=== PATIENT | female | born 1945 | race African-American/Black ===

== ENCOUNTER 2016-11-05 14:25 | Day surgery (SDC) | payer OTHER ==
[~2016-11-05] VITALS: Ht 162.6 cm; Wt 74.2 kg
[2016-11-05 15:28] VITALS: Ht 162.6 cm; Wt 74.2 kg
[2016-11-05] MEDS ORDERED: ATOR40TA68 PO (15:39)
[2016-11-05] MEDS ORDERED: LISI2.5T59 PO (15:39)
[2016-11-05 16:05] VITALS: BP 158/76; PULSE 58; RESP 18
[2016-11-05 17:15] VITALS: BP 158/74; PULSE 69; RESP 24
[2016-11-05] MEDS ORDERED: FENTAnyl 50 MCG/ML VIAL ONE (17:26)
[2016-11-05] MEDS ORDERED: MIDAZOLAM 1 MG/ML 2 ML INJ ONE ×2 (17:26)
--- NOTE | 2016-11-06 00:25 | GILP ---
DATE OF PROCEDURE: NAME OF PROCEDURE: Colonoscopy. SURGEON: Tavo Fuchs MD PREOPERATIVE DIAGNOSIS: Screening colonoscopy. POSTOPERATIVE DIAGNOSES 1. Colonoscopy all the way to the cecum. 2. Internal hemorrhoids. 3. No colon neoplasm was identified. INDICATION FOR THE PROCEDURE: Ms. Cailin Sena is a 71-year-old female patient who was scheduled fo r screening colonoscopy. The procedure and possible complications are well explained to the patient. The patient understood and consented to the procedure. DESCRIPTION OF PROCEDURE: Under the influence of fentanyl and Versed, the colonoscope was carefully introduced in the rectum and under direct vision, it was advanced all the way to the cecum. FINDINGS: The patient had internal hemorrhoids. No colon neoplasm was identified. She tolerated the procedure very well and there was no complication from the procedure. At the end of the procedures, she was awake with stable vital signs and she was discharged home to the care of her family. IMPRESSION: 1. Colonoscopy all the way to the cecum. 2. Internal hemorrhoids. 3. No colon neoplasm was identified. PLAN: The patient will not need another screening colonoscopy. Dictated By: TAVO ROSE/TANNER Conf#: [id number] DID#: [id number]
== END 2016-11-05 17:45 | disposition home or self-care (01) ==
LOC: GIL 14:25
PROVIDERS: ATTEND Internal Medicine Gastroenterology
DX: Z12.11 Encounter for screening for malignant neoplasm of colon (principal); K64.8 Other hemorrhoids; I10 Essential (primary) hypertension; E78.5 Hyperlipidemia, unspecified
CPT/HCPCS: 45378; J2250; J3010